=== PATIENT | female | born 1990 | race Asian ===

== ENCOUNTER 2022-04-29 12:19 | Outpatient (CLI) | payer OTHER ==
[2022-04-29] MEDS ORDERED: BETAMET ACET-BETAMETH SOD PHOS 6 MG/ML MDV IM SCH (13:00)
[2022-04-29 13:48] VITALS: BP 128/69; PULSE 93; RESP 15; TEMP 98.7
== END 2022-04-29 13:16 | disposition home or self-care (01) ==
LOC: FBPOP 12:19
PROVIDERS: ATTEND Obstetrics & Gynecology Obstetrics
DX: O30.003 Twin pregnancy, unspecified number of placenta and unspecified number of amniotic sacs, third trimester (principal); Z3A.34 34 weeks gestation of pregnancy
CPT/HCPCS: 59025; 96372; J0702

== ENCOUNTER 2022-04-30 12:28 | Outpatient (CLI) | payer OTHER ==
[2022-04-30] MEDS ORDERED: BETAMET ACET-BETAMETH SOD PHOS 6 MG/ML MDV IM SCH (12:45)
[2022-04-30 13:13] VITALS: BP 139/74; PULSE 95; RESP 18; TEMP 98.2
== END 2022-04-30 13:06 | disposition home or self-care (01) ==
LOC: FBPOP 12:28
PROVIDERS: ATTEND Obstetrics & Gynecology Obstetrics
DX: Z34.03 Encounter for supervision of normal first pregnancy, third trimester (principal); Z3A.34 34 weeks gestation of pregnancy
CPT/HCPCS: 59025; 96372; J0702